=== PATIENT | female | born 1980 | race Caucasian/White ===

== ENCOUNTER 2017-02-06 09:23 | Emergency (ER) | payer MEDICARE, MEDICAID ==
[~2017-02-06] VITALS: Ht 154.9 cm; Wt 79.4 kg
[2017-02-06] MEDS ORDERED: IBUPROFEN800 MG PO (10:17)
[2017-02-06] MEDS ORDERED: MEDROL 4MG. DOSE4 MG PO (10:17)
[2017-02-06 10:18] VITALS: BP 127/80
--- NOTE | 2017-02-06 10:18 | Urgent Treatment Center Report ---
History of Present Issue Date/Time Seen by Provider 02/06/17 1000 Visit Reason Pt arrived:Walked Presenting Problem:PT C/O STABBING PAIN THAT STARTS IN HER RIGHT PALM AND EXTENDS DOWN INTO HER WRIST AND ARM. PT C/O INDEX AND MIDDLE FINGER GOING NUMB SOMETIMES. PT ADVISES THIS HAS BEEN PRESENT X1 WEEK Location if Accident: Onset of symptoms date/time:/ or onset unknown for:MEDICAL HX UNKNOWN Have you (or family members/close friends) recently traveled outside the [place]? N If Yes, where/when: Have you had exposure to infectious disease within the past month? TB? Other? Specify: Patient states that she is having pain in her right thumb, palm and radiates down to her wrist. States that at times her middle finger will feel odd and so will her index finger but then it just hurts. States that this has been going on for over a week and pain is worse with movement ALLERGIES Coded Allergies: divalproex sodium (From DEPAKOTE) (Mild, 02/06/17) phenytoin (From DILANTIN) (Mild, 02/06/17) History Medical History General CAD? No Angina: No [place]: No Hypertension? No Hyperlipidemia? No CHF? No DVT? No PE? No COPD? No Asthma? No Anemia? No GERD? No Gastric ulcers? No GI Bleed? No Hernia? No Thyroid Problems? No Hypothyroidism? No CVA? No Seizures? Yes Diabetes? No Renal Insuffiency? No UTI? No Stones? No BPH? No GB Disease: No Nephritic Syndrome? No Asplenia? No Hepatitis? No Sickle Cell Disease? No Arthritis? No Migraines? No Cataracts? No Glaucoma? No MRSA? No HIV? No TB? No Anxiety? No Depression? No Cancer? No More? No Immunization HX Ped.Immunizations UTD No DT/Tetanus Unknown Surgical Hx Previous Surgery?Y RIGHT FOOT LEFT FOOT TUBAL Colon Procedures Social History Smoking Hx Smoker: Current Every Day Smoker Tobacco: Yes Type Cigarettes Alcohol Alcohol: No Review of Systems All Other Systems Reviewed and Negative Comment Pain in the palm of the right hand that radiates into wrist with movement and has pain and tingling in thumb, index, and middle figer that is aggrivated with moving the hand Physical Exam Vital Signs Vital Signs Date Time Temp Pulse Resp B/P Pulse O2 O2 Flow FiO2 Ox Delivery Rate 02/06 0950 97.6 83 20 127/80 99 General Appearance normal appearance, WD/WN, no apparent distress, mild distress Respiratory Status Yes: trachea midline, chest symmetrical, non tender chest. No: respiratory distress. 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 No Results/Orders Orders Procedure Date/time Status [facility] STABILIZE JOINT/AREA 02/06 1008 Active Progress [facility] Progress Notes Date 02/06/17 Time 1008 Comment Both Tinnel and Phalen test performed and positive result. Patient placed in wrist splint to rest area and provide stability. Will refer back to family doctor for possible referal for Carpal Tunnel Release surgery if neccessary Departure Departure Time of Disposition 1011 Disposition DC Home or Self Care(routine) Clinical Impression Primary Impression: Carpal tunnel syndrome of right wrist Condition STABLE Patient Instructions DI for Carpal Tunnel Syndrome Additional Instructions Follow up with family doctor for more extensive testing and treatment to see if you may need to be refered for Carpal Tunnel Release Take Medication as prescribed Return to [facility] if needed Wear Splint especially at night to provide stability and rest to the joint Take breaks when working with this hand and allow wrist area to rest on surface if typing etc. Discharge Counseling Counseled pt/family regarding diagnosis, medications/RX, home care, follow up needs Prescriptions Current Visit Scripts Methylprednisolone (Medrol Dose Ramone) 4 MG PO UD #1 RAMONE TAKE DIRECTED ON PACKAGING Ibuprofen (Ibuprofen 800MG) 800 MG PO QIDP PRN pain #30 TAB at 1017
--- NOTE | 2017-02-06 10:18 | Urgent Treatment Center Report ---
History of Present Issue Date/Time Seen by Provider 02/06/17 1000 Visit Reason Pt arrived:Walked Presenting Problem:PT C/O STABBING PAIN THAT STARTS IN HER RIGHT PALM AND EXTENDS DOWN INTO HER WRIST AND ARM. PT C/O INDEX AND MIDDLE FINGER GOING NUMB SOMETIMES. PT ADVISES THIS HAS BEEN PRESENT X1 WEEK Location if Accident: Onset of symptoms date/time:/ or onset unknown for:MEDICAL HX UNKNOWN Have you (or family members/close friends) recently traveled outside the [place]? N If Yes, where/when: Have you had exposure to infectious disease within the past month? TB? Other? Specify: Patient states that she is having pain in her right thumb, palm and radiates down to her wrist. States that at times her middle finger will feel odd and so will her index finger but then it just hurts. States that this has been going on for over a week and pain is worse with movement ALLERGIES Coded Allergies: divalproex sodium (From DEPAKOTE) (Mild, 02/06/17) phenytoin (From DILANTIN) (Mild, 02/06/17) History Medical History General CAD? No Angina: No [place]: No Hypertension? No Hyperlipidemia? No CHF? No DVT? No PE? No COPD? No Asthma? No Anemia? No GERD? No Gastric ulcers? No GI Bleed? No Hernia? No Thyroid Problems? No Hypothyroidism? No CVA? No Seizures? Yes Diabetes? No Renal Insuffiency? No UTI? No Stones? No BPH? No GB Disease: No Nephritic Syndrome? No Asplenia? No Hepatitis? No Sickle Cell Disease? No Arthritis? No Migraines? No Cataracts? No Glaucoma? No MRSA? No HIV? No TB? No Anxiety? No Depression? No Cancer? No More? No Immunization HX Ped.Immunizations UTD No DT/Tetanus Unknown Surgical Hx Previous Surgery?Y RIGHT FOOT LEFT FOOT TUBAL Colon Procedures Social History Smoking Hx Smoker: Current Every Day Smoker Tobacco: Yes Type Cigarettes Alcohol Alcohol: No Review of Systems All Other Systems Reviewed and Negative Comment Pain in the palm of the right hand that radiates into wrist with movement and has pain and tingling in thumb, index, and middle figer that is aggrivated with moving the hand Physical Exam Vital Signs Vital Signs Date Time Temp Pulse Resp B/P Pulse O2 O2 Flow FiO2 Ox Delivery Rate 02/06 0950 97.6 83 20 127/80 99 General Appearance normal appearance, WD/WN, no apparent distress, mild distress Respiratory Status Yes: trachea midline, chest symmetrical, non tender chest. No: respiratory distress. 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 No Results/Orders Orders Procedure Date/time Status [facility] STABILIZE JOINT/AREA 02/06 1008 Active Progress [facility] Progress Notes Date 02/06/17 Time 1008 Comment Both Tinnel and Phalen test performed and positive result. Patient placed in wrist splint to rest area and provide stability. Will refer back to family doctor for possible referal for Carpal Tunnel Release surgery if neccessary Departure Departure Time of Disposition 1011 Disposition DC Home or Self Care(routine) Clinical Impression Primary Impression: Carpal tunnel syndrome of right wrist Condition STABLE Patient Instructions DI for Carpal Tunnel Syndrome Additional Instructions Follow up with family doctor for more extensive testing and treatment to see if you may need to be refered for Carpal Tunnel Release Take Medication as prescribed Return to [facility] if needed Wear Splint especially at night to provide stability and rest to the joint Take breaks when working with this hand and allow wrist area to rest on surface if typing etc. Discharge Counseling Counseled pt/family regarding diagnosis, medications/RX, home care, follow up needs Prescriptions Current Visit Scripts Methylprednisolone (Medrol Dose Ramone) 4 MG PO UD #1 RAMONE TAKE DIRECTED ON PACKAGING Ibuprofen (Ibuprofen 800MG) 800 MG PO QIDP PRN pain #30 TAB at 1017
== END 2017-02-06 10:20 | disposition home or self-care (01) ==
LOC: UTC 09:23
PROC: 2W3EX1Z Immobilization of Right Hand using Splint (ICD-10-PCS; principal; 2017-02-06)
DX: G56.01 Carpal tunnel syndrome, right upper limb (principal)